=== PATIENT | male | born 1965 | race Caucasian/White ===

== ENCOUNTER → 2016-12-14 14:18 | Emergency (ER) | payer OTHER ==
[~2016-12-14 14:18] MED LIST: NALBUPHINE HCL 10 MG/ML AMP ONE; ONDANSETRON 4 MG/2ML 2 ML VIAL ONE
[2016-12-14 16:52] LABS: ABSOLUTE NEUTROPHIL COUNT 3.7 K/mm3 (1.8-7.7); BASO % 0.5 % (0.2-1.0); EOS # 0.2 (0.0-0.5); EOS % 2.3 % (0.9-2.9); HEMATOCRIT 44.6 % (32.0-52.0); HEMOGLOBIN 15.1 gm/l (14.0-18.0); IMM NEUT% 0.2 % (0-1); LYMPH # 3.5 (1.0-4.8); LYMPH % 43.4 % (15-45); MEAN CELL VOLUME 98.2 fl (80.0-94.0); MEAN CORPUSCULAR HEMOGLOBIN 33.3 pg (27.0-31.0); MEAN CORPUSCULAR HGB CONC 33.9 g/dl (33.0-37.0); MEAN PLATELET VOLUME 10.6 fl (7.4-10.4); MONO # 0.6 (0.0-0.8); MONO % 7.5 % (4-12); NEUT % 46.1 % (43-75); PLATELET COUNT 289 K/mm3 (130-400); RED CELL DISTRIBUTION WIDTH 13.2 % (11.5-14.5)
[2016-12-14 17:09] LABS: ALB/GLOB RATIO 1.5 (>1.0); CALCIUM 9.2 mg/dL (8.6-10.3)
== END | disposition other institution (70) ==
LOC: ED 14:18
DX: M54.5 Low back pain (principal); R29.818 Other symptoms and signs involving the nervous system; E83.119 Hemochromatosis, unspecified; Z98.1 Arthrodesis status